=== PATIENT | male | born 1970 | race Hispanic/Latino ===

== ENCOUNTER 2019-09-04 06:27 | Day surgery (SDC) | payer OTHER ==
[2019-09-03 15:00] LABS: BASOPHILS % (AUTO) 0.8 % (0.0-5.0); HEMATOCRIT 49.7 % (42-54); LYMPHOCYTES % (AUTO) 30.8 % (21.0-51.0); MEAN CORPUSCULAR HEMOGLOBIN 32.1 pg (27.0-33.0); MEAN CORPUSCULAR HGB CONC 34.6 g/dL (32.0-36.0); MEAN CORPUSCULAR VOLUME 92.7 fL (79-99); MONOCYTES % (AUTO) 9.6 % (3.0-13.0); NEUTROPHILS % (AUTO) 54.5 % (40.0-77.0); PLATELET COUNT (AUTO) 191 K/uL (130-400); RED BLOOD CELL COUNT(AUTO) 5.36 MIL/uL (4.50-6.20); RED CELL DISTRIBUTION WIDTH 11.7 % (11.0-15.5); WHITE BLOOD COUNT (AUTO) 7.8 K/uL (4.8-10.8)
[2019-09-03 15:07] LABS: CREATININE 1.2 mg/dL (0.5-1.5); POTASSIUM 4.9 mmol/L (3.5-5.1)
[2019-09-03 15:23] VITALS: BP 133/91
--- NOTE | 2019-09-03 19:46 | NUR ---
Dr. Tobin notified of pt's abnormal BUN of 24. No new orders given.
[2019-09-04] VITALS (17 sets, daily range): BP systolic 113–134; BP diastolic 78–89
[~2019-09-04] VITALS: Ht 171.4 cm; Wt 102.7 kg
[2019-09-04] MEDS: CEFAZOLIN SODIUM 1 GM VIAL IVP SCH ×2 (06:00→08:45)
[~2019-09-04 06:27] MED LIST: ALLO100T PO; ATOR40TA71 PO; LEVO75TA4 PO; MV-M1TAB20 PO; THIA100T78 PO
[2019-09-04] MEDS ORDERED: LACTATED RINGERS 1000ML 1,000 ML IV ONE (06:57)
--- NOTE | 2019-09-04 07:18 | NUR ---
POTENTIAL FOR INFECTION: SHAVED LEFT LEG / LEFT KNEE PER DARIN BROWNE, FOLLOWED BY WIPING WITH MORENA: 2% CHLORHEXIDINE GLUCONATE CLOTH PATIENTS PRE-OP SKIN PREP.
[2019-09-04] MEDS ORDERED: MIDAZOLAM HCL 1 MG/ML 2ML VIAL ONE (08:29)
[2019-09-04] MEDS ORDERED: LIDOCAINE PF 2% 5ML ABBOJECT ONE (08:29)
[2019-09-04] MEDS ORDERED: DEXAMETHASONE SOD PHOSPHATE 10MG/ML 1ML VIAL ONE (08:29)
[2019-09-04] MEDS ORDERED: FENTANYL CITRATE PF 50 MCG/1 ML 2ML VIAL ONE (08:30)
[2019-09-04] MEDS ORDERED: ONDANSETRON HCL 4 MG/2 ML VIAL ONE (08:30)
[2019-09-04] MEDS ORDERED: PROPOFOL 10 MG/ML 20ML VIAL IV ONE (08:30)
[2019-09-04] MEDS ORDERED: ROCURONIUM 10MG/1ML SYR 10 MG/ML ML ONE (08:38)
[2019-09-04] MEDS ORDERED: BUPIVACAINE/EPI/PF 0.5% 30ML VIAL IJ ONE (08:44)
[2019-09-04] MEDS ORDERED: NEOSTIGMINE 5MG/5ML SYR IV ONE (09:35)
[2019-09-04] MEDS ORDERED: GLYCOPYRROLATE 1 MG/5 ML SYRINGE ONE (09:35)
[2019-09-04] MEDS ORDERED: CEPH500B PO (09:54)
[2019-09-04] MEDS ORDERED: IBUP-2070 PO (09:54)
[2019-09-04] MEDS ORDERED: MEPERIDINE-PF 25 MG/ML SYG ONE ×2 (10:00→10:09)
--- NOTE | 2019-09-04 10:45 | NUR ---
RECEIVE PT RECEIVED FROM PACU VIA STRETCHER AWAKE ALERT ORIENTED X3. PT STABLE. NO COMPLAINTS MADE. DRESSING TO LEFT KNEE DRY AND INTACT, NO OOZING NOTED. ICE PACK APPLIED TO SITE, ELEVATED. CALL SALAS WITHIN REACH. WILL CALL FOR FAMILY TO COME IN.
--- NOTE | 2019-09-04 11:23 | NUR ---
DISCHARGE PT DISCHARGED VIA WHEELCHAIR WITH PARENTS. PT STABLE. NO COMPLAINTS MADE. TOLERATED ORAL FLUIDS WELL. DRESSING TO LEFT KNEE REMAINS DRY AND INTACT, NO OOZING NO SWELLING NOTED. CRUTCHES PROVIDED. DISCHARGE INSTRUCTIONS GIVEN TO MOTHER AND PT, VERBALIZED UNDERSTANDING.
== END 2019-09-04 11:23 | disposition home or self-care (01) ==
LOC: DAH 06:27
PROVIDERS: ATTEND Orthopaedic Surgery
DX: M23.322 Other meniscus derangements, posterior horn of medial meniscus, left knee (principal); M25.562 Pain in left knee; G89.29 Other chronic pain; M17.5 Other unilateral secondary osteoarthritis of knee; M65.862 Other synovitis and tenosynovitis, left lower leg; M94.262 Chondromalacia, left knee; E03.9 Hypothyroidism, unspecified; Z83.3 Family history of diabetes mellitus; E66.9 Obesity, unspecified; Z68.34 Body mass index [BMI] 34.0-34.9, adult; Z79.899 Other long term (current) drug therapy; Z72.89 Other problems related to lifestyle
CPT/HCPCS: 29881; 36415; 80048; 85025; A4215; A4221; A4222; A4223; A4606; A4649; A4663; A4930; A5120; A6223; J0690; J1100; J2001; J2175 ×2; J2250; J2405; J2704; J2710; J3010; J3490 ×2; J7120